=== PATIENT | female | born 1970 | race Two or more races ===

== ENCOUNTER 2023-02-15 09:26 | Outpatient (CLI) | payer OTHER | END 2023-02-15 09:41 | disposition home or self-care (01) | LOC: RAD 09:26 | PROVIDERS: ATTEND Orthopaedic Surgery | DX: M25.561 Pain in right knee (principal); M17.11 Unilateral primary osteoarthritis, right knee; M23.231 Derangement of other medial meniscus due to old tear or injury, right knee ==

== ENCOUNTER 2023-02-15 10:34 | Outpatient (CLI) | payer OTHER | END 2023-02-15 10:41 | disposition home or self-care (01) | LOC: LAB 10:34 | PROVIDERS: ATTEND Orthopaedic Surgery | DX: D64.89 Other specified anemias (principal); E88.89 Other specified metabolic disorders; D68.8 Other specified coagulation defects; N39.9 Disorder of urinary system, unspecified; A49.02 Methicillin resistant Staphylococcus aureus infection, unspecified site; E11.9 Type 2 diabetes mellitus without complications ==